=== PATIENT | female | born 1955 | race Caucasian/White ===

== ENCOUNTER 2016-09-16 13:00 | Emergency (ER) | payer OTHER ==
[~2016-09-16] VITALS: Ht 162.6 cm; Wt 89.9 kg
[~2016-09-16 13:00] MED LIST: BENTYL20 MG PO; CELECOXIB200 MG PO; CHERATUSSIN AC473 ML PO; CIPRO500 MG PO; DICYCLOMINE HCL20 MG PO; ENDOCET 5-3251 EACH PO; FLEXERIL10 MG PO; FLEXERIL5 MG PO; FLUOXETINE HCL40 MG PO; IBUPROFEN600 MG PO; KEFLEX500 MG PO; LIDODERM 5% P1 PATCH TD; LOVENOX40 MG/0.4 SC; MACROBID100 MG PO; MIRALAX17 GM PO; MOTRIN800 MG PO; MYRBETRIQ25 MG PO; NAPROSYN500 MG PO; NEXIUM20 MG PO; NEXIUM40 MG PO; NORCO 5/3251 TABLET PO; PERCOCET 5/31 TABLET PO; PREDNISONE10 M1 PO; PROTONIX40 MG PO; PROZAC20 MG PO; PROZAC40 MG PO; SENNA PLUS TAB1 EACH PO; TESSALON PERLE100 MG PO; TRAMADOL HCL50 MG PO; ULTRAM50 MG PO; VALIUM2 MG PO; VESICARE5 MG PO; ZOFRAN ODT4 MG PO; ZOFRAN ODT8 MG PO
[2016-09-16 14:12] LABS: ADD MIUA? YES; BILIRUBIN SMALL; BLOOD NEGATIVE; COLOR YELLOW ((YELLOW)); GLUCOSE (STRIP) NEGATIVE; KETONES NEGATIVE; LEUKOCYTES MODERATE; NITRITE NEGATIVE; PH, URINE 5.5 (5-8); PROTEIN (STRIP) NEGATIVE; UROBILINOGEN 0.2 MG/DL (0.2-1.0)
[2016-09-16 14:56] LABS: BACTERIA 2+; CASTS PRESENT /LPF; MUCUS 1+; RED BLOOD CELLS 0-5 /HPF (0-5); UCUL ADDED? YES; WHITE BLOOD CELLS 15-20 /HPF (0-5)
[2016-09-16 14:57] LABS: CRYSTALS NONE SEEN; EPITHELIAL CELLS 2+; HYALINE CASTS 0-5 /LPF
[2016-09-16] MEDS ORDERED: AUGMENTIN875 MG PO (15:47)
[2016-09-16 16:01] VITALS: BP 137/81
== END 2016-09-16 16:01 | disposition home or self-care (01) ==
LOC: EME 13:00
DX: N12 Tubulo-interstitial nephritis, not specified as acute or chronic (principal)
CPT/HCPCS: 81003; 87077; 87086; 87186; 99281; 99284

== ENCOUNTER 2016-10-06 12:28 | Emergency (ER) | payer OTHER ==
[~2016-10-06] VITALS: Ht 162.6 cm; Wt 91.4 kg
[~2016-10-06 12:28] MED LIST changes: +AUGMENTIN875 MG PO
[2016-10-06 14:08] LABS: HEMATOCRIT 41.6 % (36.0-46.0); MCHC 34.4 G/DL (30.0-36.0); MCV 84.4 FL (83-99); MEAN PLAT.VOLUME 9.3 uM^3 (9.5-12.4); PLATELET COUNT 331 K/uL (156-360); RBC DIS.WIDTH-CV 13.1 % (11.8-14.6); RBC DIS.WIDTH-SD 39.8 % (39-53); RED BLOOD COUNT 4.93 M/uL (3.80-5.20); WHITE BLOOD COUNT 8.1 K/uL (4.1-10.2)
[2016-10-06 14:18] LABS: CHLORIDE 104 mEq/L (99-109); POTASSIUM 3.9 mEq/L (3.7-5.4); SODIUM 137 mEq/L (136-147)
[2016-10-06 14:20] LABS: GLUCOSE 125 mg/dL (70-99)
[2016-10-06 14:22] LABS: ANION GAP 10 MEQ/L (2-14)
[2016-10-06 14:24] LABS: GFR ESTIMATE (CALCULATED) > 59 mL/min/
[2016-10-06 14:25] LABS: UREA NITROGEN (BUN) 12 mg/dL (9-23)
[2016-10-06 14:31] LABS: BILIRUBIN NEGATIVE; BLOOD NEGATIVE; COLOR YELLOW ((YELLOW)); GLUCOSE (STRIP) NEGATIVE; KETONES NEGATIVE; LEUKOCYTES NEGATIVE; NITRITE NEGATIVE; PH, URINE 5.5 (5-8); PROTEIN (STRIP) NEGATIVE; UROBILINOGEN 0.2 MG/DL (0.2-1.0)
[2016-10-06 14:44] LABS: ADD MIUA? NO; UCUL ADDED? NO
[2016-10-06] MEDS ORDERED: MIRALAX255 GM PO (16:45)
[2016-10-06] MEDS ORDERED: NAPROSYN500 MG PO (16:45)
[2016-10-06 17:05] VITALS: BP 134/92
== END 2016-10-06 17:20 | disposition home or self-care (01) ==
LOC: EME → EDBD 12:28 → EME 12:28
PROVIDERS: Nurse Practitioner Family
DX: R32 Unspecified urinary incontinence (principal); K59.00 Constipation, unspecified; R10.9 Unspecified abdominal pain
CPT/HCPCS: 74176; 80048; 81003; 85027; 99281; 99285